=== PATIENT | female | born 1960 | race Caucasian/White ===

== ENCOUNTER → 2023-12-08 07:51 | Outpatient (REF) | payer BC, SELFPAY | LOC: WDC 07:51 | PROVIDERS: ATTENDING PHYSICIAN Internal Medicine Geriatric Medicine | DX: Z12.31 Encounter for screening mammogram for malignant neoplasm of breast (principal) | CPT/HCPCS: 77063; 77067 ==

== ENCOUNTER → 2024-12-12 08:36 | Outpatient (REF) | payer MEDICARE, SELFPAY | LOC: WDC 08:36 | PROVIDERS: ATTENDING PHYSICIAN Internal Medicine Geriatric Medicine | DX: Z12.31 Encounter for screening mammogram for malignant neoplasm of breast (principal) | CPT/HCPCS: 77063; 77067 ==

== ENCOUNTER → 2025-01-14 13:13 | Outpatient (REF) | payer MEDICARE, SELFPAY | LOC: RAD 13:13 | PROVIDERS: ATTENDING PHYSICIAN Nurse Practitioner Family | DX: R05.3 Chronic cough (principal); R09.89 Other specified symptoms and signs involving the circulatory and respiratory systems | CPT/HCPCS: 71046 ==

== ENCOUNTER 2025-02-07 13:46 | Emergency (ER) | payer MEDICARE, SELFPAY ==
[2025-02-07 13:46] VITALS: BMI 22.5
[2025-02-07 13:53] VITALS: BP 134/86
[2025-02-07 14:10] LABS: % Basophils 0.3 % (0-2); % Immature Granulocytes 0.1 % (0-0.5); % Lymphocytes 7.6 % (20.5-51.1); % Monocytes 3.7 % (1.7-9.3); % Neutrophils 88.3 % (42.2-75.2); Absolute Lymphocytes 0.5 10^3/uL (1.2-3.4); Absolute Monocytes 0.3 10^3/uL (0.1-0.6); Absolute Neutrophils 6.2 10^3/uL (1.4-6.5); Hematocrit 39.4 % (37.0-47.0); Hemoglobin 13.3 g/dL (12.0-16.0); Mean Corp Hgb Conc. 33.8 g/dL (33.0-37.0); Mean Corpuscular Hgb 30.9 pg (27.0-31.0); Mean Corpuscular Volume 91.4 fL (81.0-99.0); Mean Platelet Volume 9.5 fL (7.4-10.4); Nucleated Red Blood Cells % 0 %; Platelet Count 243 10^3/uL (130-400); Red Blood Cell Count 4.31 10^6/uL (4.20-5.40); Red Cell Dist. Width 12.6 % (11.5-14.5)
[2025-02-07 14:31] LABS: ALT (SGPT) 34 U/L (0-35); AST (SGOT) 39 U/L (14-36); Albumin 4.7 g/dl (3.5-5.0); Alkaline Phosphatase 77 U/L (38-126); Blood Urea Nitrogen 11 mg/dl (7-17); Calcium 9.6 mg/dl (8.4-10.2); Carbon Dioxide 25 mmol/L (22-30); Chloride 101 mmol/L (98-107); Glucose 105 mg/dl (70-99); Lipase 93 U/L (23-300); Sodium 138 mmol/L (135-145); Total Bilirubin 0.9 mg/dl (0.2-1.3); Total Protein 7.6 g/dl (6.3-8.2); eGFR > 60.00
[2025-02-07 16:00] VITALS: BP 124/75
--- NOTE | 2025-02-07 16:41 | ED.GENMED ---
History of Present Illness
<MONSTER Liao - Last Filed: 02/07/25 18:52>
General
Chief Complaint: Abdominal Pain
Source: patient
Exam Limitations: none
Time Seen by Provider: 02/07/25 16:21
Travel History
Have you traveled to any high risk areas for coronavirus over the past 14 days?: No
Comment: Recent Travel: [place], returned 02/06/25
History of Present Illness
History of Present Illness:
65 y/o F pt with a PMH of hypercholestrolemia and ectopic -surgically resolved, presenting to ED c/o sudden intermittent LLQ pain x 36 hours. Pt states she has been in [place] for 2 weeks, returned yesterday 02/06/25. LLQ pain is
intermittent, rated 5/10. Pt states nothing makes it better or worse. Reports associated low-grade fever and bilaterally lower back pain, mild watery diarrhea twice this morning 02/07/25. Didn't take anything for fever, PCP suggested she come to ED
for CT of the abdomen. Pt denies any mucus or blood in stool. Recent illness and antibiotic use end of December, has a lingering dry cough. Denies dysuria, frequency, urgency, chest pain, SOB.
Past History
<MONSTER Liao - Last Filed: 02/07/25 18:52>
Past History
ED Past Medical History: Hypercholesterolemia
ED Past Surgical History: Gynecological (ectopic ) and Other (R parotid gland removal)
Review of Systems
<MONSTER Liao - Last Filed: 02/07/25 18:52>
Review of Systems
Constitutional: Reports fever
EENT: Reports no symptoms
Respiratory: Reports cough
Cardiac: Reports no symptoms
ABD/GI: Reports abdominal pain and diarrhea
: Reports no symptoms
Musculoskeletal: Reports back pain (bilateral,mild, intermittent)
Skin: Reports no symptoms
Neurological: Reports no symptoms
Phy Exam
<Kenneth Chopra [facility] - Last Filed: 02/07/25 18:52>
General Physical Exam
General Presentation: well appearing and no apparent distress
General age: appears stated age
General Skin: warm
General Habitus: normal
General Mental: alert
General Hydration: appears well hydrated
ENT Exam
ENT Exam: neck supple and normocephalic
Cardiovascular Exam
Cardiovascular Exam: regular rate/rhythm, no edema, no gallop, no murmur and normal peripheral pulses
Pulmonary Exam
Pulmonary Exam: lungs clear and no respiratory distress
Cough: non productive cough
Gastrointestinal Exam
Gastrointestinal Exam: normal bowel sounds, no organomegaly, non distended, no cva tenderness and tender (LLQ tenderness)
Palpation: left upper quadrant: No tenderness, left lower quadrant: Minimal tenderness, right upper quadrant: No tenderness and right lower quadrant: No tenderness
Auscultation of Abdomen: normal
Skin Exam
Skin Exam: normal color
Course
<Kenneth Chopra [facility] - Last Filed: 02/07/25 18:52>
Orders/Labs/Results
Orders:
Orders
02/07/25 14:00
Complete Blood Count/With Diff Urgent
Comprehensive Metabolic Panel Urgent
Lipase Urgent
02/07/25 16:44
CT Abd/Pel (IV only)-DH only Urgent
Comment:
Reason For Exam: llq pain
IV Insert/Care/Rem.- Treatment PRN
0.9% Sodium Chloride 500 ml [Nss] 500 ml IV BOLUS
02/07/25 18:12
Urinalysis Reflex To Culture Urgent
Date Specimen was Collected: 02/07/25
Time Specimen was Collected: 13:55
Urine Microscopic Reflex Cult Urgent
Urine Culture Urgent
PRIMITIVO Source: U
Specimen Description:
Date Specimen was Collected: 02/07/25
Time Specimen was Collected: 13:55
02/07/25 19:19
Amoxicillin 875 mg/Clav 125 mg [Augmentin 875 mg/125 mg] 1 tablet PO NOW STA
Abnormal Lab Results
02/07/25 02/07/25
14:00 18:12
Absolute Lymphs (auto) 0.5 L 10^3/uL
(1.2-3.4)
Neutrophils % 88.3 H %
(42.2-75.2)
Lymphocytes % 7.6 L %
(20.5-51.1)
Glucose 105 H mg/dl
(70-99)
AST 39 H U/L
(14-36)
Urine Ketones 3+ A
(Negative)
Ur Occult Blood Reflex 4+ A
(Negative)
Leukocyte Esterase Rfl 3+ A
(Negative)
Urine RBC 3-6 A /HPF
(0-2)
Urine WBC (Reflex) 26-30 A /HPF
(0-5)
Urine Bacteria (Reflex) Few A
(Negative)
02/07/25 14:00
02/07/25 14:00
Vital Signs
Initial and Last Documented VS:
Initial Vital Signs
Temp Pulse Resp BP Pulse Ox
99.1 F 110 17 134/86 99
02/07/25 13:53 02/07/25 13:53 02/07/25 13:53 02/07/25 13:53 02/07/25 13:53
Last Documented Vital Signs
Temp Pulse Resp BP Pulse Ox
98.7 F 89 17 129/78 95
02/07/25 16:57 02/07/25 16:57 02/07/25 16:57 02/07/25 16:57 02/07/25 16:57
<Sheldon Ogden MD - Last Filed: 02/07/25 19:22>
Orders/Labs/Results
Orders:
Orders
02/07/25 14:00
Complete Blood Count/With Diff Urgent
Comprehensive Metabolic Panel Urgent
Lipase Urgent
02/07/25 16:44
CT Abd/Pel (IV only)-DH only Urgent
Comment:
Reason For Exam: llq pain
IV Insert/Care/Rem.- Treatment PRN
0.9% Sodium Chloride 500 ml [Nss] 500 ml IV BOLUS
02/07/25 18:12
Urinalysis Reflex To Culture Urgent
Date Specimen was Collected: 02/07/25
Time Specimen was Collected: 13:55
Urine Microscopic Reflex Cult Urgent
Urine Culture Urgent
PRIMITIVO Source: U
Specimen Description:
Date Specimen was Collected: 02/07/25
Time Specimen was Collected: 13:55
02/07/25 19:19
Amoxicillin 875 mg/Clav 125 mg [Augmentin 875 mg/125 mg] 1 tablet PO NOW STA
Abnormal Lab Results
02/07/25 02/07/25
14:00 18:12
Absolute Lymphs (auto) 0.5 L 10^3/uL
(1.2-3.4)
Neutrophils % 88.3 H %
(42.2-75.2)
Lymphocytes % 7.6 L %
(20.5-51.1)
Glucose 105 H mg/dl
(70-99)
AST 39 H U/L
(14-36)
Urine Ketones 3+ A
(Negative)
Ur Occult Blood Reflex 4+ A
(Negative)
Leukocyte Esterase Rfl 3+ A
(Negative)
Urine RBC 3-6 A /HPF
(0-2)
Urine WBC (Reflex) 26-30 A /HPF
(0-5)
Urine Bacteria (Reflex) Few A
(Negative)
02/07/25 14:00
04/18/25 14:00
Vital Signs
Initial and Last Documented VS:
Initial Vital Signs
Temp Pulse Resp BP Pulse Ox
99.1 F 110 17 134/86 99
02/07/25 13:53 02/07/25 13:53 02/07/25 13:53 02/07/25 13:53 02/07/25 13:53
Last Documented Vital Signs
Temp Pulse Resp BP Pulse Ox
98.7 F 89 17 129/78 95
02/07/25 16:57 02/07/25 16:57 02/07/25 16:57 02/07/25 16:57 02/07/25 16:57
<MONSTER Liao - Last Filed: 02/07/25 18:52>
*Critical Care Note
Total Time (30-74mins, 75-104mins- exclusive of procedures): Not Applicable
<Sheldon Ogden MD - Last Filed: 02/07/25 19:22>
Update Note
Update Note:
No acute findings on CT. Possible UTI possible very mild diverticulitis. Reasonable to cover with Augmentin. Discussed with patient and family
ED Attending Note
<MONSTER Liao - Last Filed: 02/07/25 18:52>
-
Portions of this chart may have been created with voice recognition software.� Occasional wrong word or��sound alike� substitutions may have occurred due to the inherent limitations of voice recognition software.
<Sheldon Ogden MD - Last Filed: 02/07/25 19:22>
ED Attending Note
Patient seen and examined by attending physician: Yes
I performed the substantive portion of visit, reviewed & personally made and approve the management plan that is documented in note by myself or TIMOTHY.: Yes
ED Attending Note:
65-year-old female. 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 Complaining of left lower quadrant pain. Crampy-like intermittent since yesterday. Some minimal radiation of the back. 2 episodes of diarrhea this morning. No blood or mucus. No
fever or chills. Just returned home from [place]. No similar episodes in the past. Minimal symptoms currently
On Lipitor only.
GENERAL: Alert and oriented in no apparent distress
EYE: Orbits normal.
CARDIAC: Regular rate and rhythm without any obvious murmurs.
LUNGS: Clear breath sounds,normal
ABDOMEN: Soft, no rebound or guarding no mass or hernia. Very minimal left lower quadrant tenderness
NEUROLOGICAL: Alert and oriented , grossly non-focal
SKIN: Warm and dry
PSYCH: Normal and appropriate interaction.
Differential medical decision making. Diverticulitis colitis left-sided appendicitis nonspecific. Workup in progress. Low suspicion for C. difficile colitis. Has been on antibiotics but this was a month ago. Only 2 episodes of mild diarrhea.
Discharge Plan
Departure
Patient Disposition: Home (Routine Discharge)
Date of Disposition: 02/07/25
Time of Disposition: 19:20
Patient with high blood pressure during this ER visit?: Yes
Discharge Problem:
Left lower quadrant pain, Diverticulosis, Possible UTI
Instructions: Diverticulosis, Abdominal Pain
Prescriptions:
New
amoxicillin-pot clavulanate 875-125 mg tablet
1 tab PO BID Qty: 14 0RF
Referrals:
Christoph Harp MD [Family Provider] - Follow up in 2-3 days
Activity Restrictions/Additional Instructions:
Your prescription was sent to your pharmacy.
Follow-up closely with your primary physician
Interventions
Interventions:
*Risk Screen - Suicide Last Done: 02/07/25 13:55
*General Assessment Last Done: 02/07/25 16:57
*Neglect/Abuse Screening Last Done: 02/07/25 13:55
*ED- Fall Risk Assessment Last Done: 02/07/25 16:57
*ED COVID-19 Vaccine History Last Done: 02/07/25 13:55
WE-[id number] Assessment Last Done: 02/07/25 17:06
Discharge Date and Time
Print Language: FAROESE
[2025-02-07 16:55] VITALS: BP 129/78
[2025-02-07 16:57] VITALS: BP 129/78
[2025-02-07] MEDS: NSS 500 IV (17:05)
[2025-02-07 18:23] LABS: Urine Albumin Negative (Neg - Trace); Urine Bilirubin Negative (Negative); Urine Glucose Negative (Negative); Urine Ketone 3+ (Negative); Urine Leukocyte 3+ (Negative); Urine Nitrite Negative (Negative); Urine Occult Blood 4+ (Negative); Urine Urobilinogen Negative (Neg - 1+)
[2025-02-07 18:31] LABS: Urine Color Yellow
[2025-02-07 18:32] LABS: Urine Character Clear (Clear); Urine White Cell 26-30 /HPF (0-5)
[2025-02-07 18:33] LABS: Urine Bacteria Few (Negative)
[2025-02-07] MEDS: AUGMENTIN 875 MG/125 MG 1 TABLET PO (19:27)
== END 2025-02-07 19:38 | disposition home or self-care (01) ==
LOC: EMR 13:46
PROVIDERS: EMERGENCY PHYSICIAN Emergency Medicine; FAMILY PHYSICIAN Internal Medicine Geriatric Medicine
DX: R10.32 Left lower quadrant pain (principal); K57.90 Diverticulosis of intestine, part unspecified, without perforation or abscess without bleeding; E78.00 Pure hypercholesterolemia, unspecified; Z87.59 Personal history of other complications of pregnancy, childbirth and the puerperium
CPT/HCPCS: 99284; 96360; 74177; 80053; 81003; 81015; 83690; 85025; 87086; Q9967

== ENCOUNTER → 2025-06-25 10:57 | Outpatient (REF) | payer MEDICARE, SELFPAY | LOC: RAD 10:57 | PROVIDERS: ATTENDING PHYSICIAN Internal Medicine Geriatric Medicine; REFERRING PHYSICIAN Obstetrics & Gynecology Gynecology | DX: Z00.00 Encounter for general adult medical examination without abnormal findings (principal); E78.5 Hyperlipidemia, unspecified; E55.9 Vitamin D deficiency, unspecified; R05.3 Chronic cough; Z13.31 Encounter for screening for depression; Z12.11 Encounter for screening for malignant neoplasm of colon; R41.3 Other amnesia; M81.0 Age-related osteoporosis without current pathological fracture | CPT/HCPCS: 77080 ==